=== PATIENT | female | born 1990 | race Caucasian/White ===

== ENCOUNTER 2021-03-09 23:14 | Inpatient (IN) | payer OTHER ==
[~2021-03-09] VITALS: Ht 165.1 cm; Wt 148.3 kg
[2021-03-10 00:16] LABS: HEMOGLOBIN 13.5 gm/dl (12.3-15.3); RED BLOOD COUNT 4.51 M/UL (4.00-5.10); WHITE BLOOD COUNT 16.5 K/UL (4.5-11.0)
[2021-03-10 00:31] LABS: BUN/CREATININE RATIO 21 (0-10)
[2021-03-10] MEDS ORDERED: ZESTRIL/PRINIVI10 MG PO (12:55)
[2021-03-11 06:42] LABS: HEMOGLOBIN 12.7 gm/dl (12.3-15.3); RED BLOOD COUNT 4.29 M/UL (4.00-5.10)
[2021-03-11 06:51] LABS: WHITE BLOOD COUNT 11.2 K/UL (4.5-11.0)
[2021-03-11 07:15] LABS: BUN/CREATININE RATIO 14 (0-10)
--- NOTE | 2021-03-12 06:25 | NUR ---
pt swelling and redness has decreased in right lower mandible region.
[2021-03-13 07:07] LABS: HEMOGLOBIN 13.2 gm/dl (12.3-15.3); RED BLOOD COUNT 4.4 M/UL (4.00-5.10); WHITE BLOOD COUNT 10.1 K/UL (4.5-11.0)
[2021-03-13 07:31] LABS: BUN/CREATININE RATIO 13 (0-10)
== END 2021-03-13 13:55 | disposition home or self-care (01) | DRG 872 ==
LOC: ER1 23:14 → CDU 03-10 02:48 → M/S 03-10 18:08
PROVIDERS: Internal Medicine; Physician Assistant; ADMIT Internal Medicine Infectious Disease
DX: A41.9 Sepsis, unspecified organism (principal); L03.211 Cellulitis of face; K12.2 Cellulitis and abscess of mouth; Z68.43 Body mass index [BMI] 50.0-59.9, adult; Z20.822 Contact with and (suspected) exposure to COVID-19; I10 Essential (primary) hypertension; K02.9 Dental caries, unspecified; E66.01 Morbid (severe) obesity due to excess calories; E87.6 Hypokalemia; Z87.59 Personal history of other complications of pregnancy, childbirth and the puerperium
CPT/HCPCS: 36415; 70487; 80053; 83605; 85025; 86140; 87040; 96374; 96375; 99284; J0295; J1885; J1956; Q9967; U0002